=== PATIENT | male | born 1975 | race Caucasian/White ===

== ENCOUNTER 2019-11-06 19:37 | Emergency (ER) | payer OTHER ==
[~2019-11-06] VITALS: Ht 172.7 cm; Wt 117.4 kg
[2019-11-06] MEDS ORDERED: DIPH,PERTUSS(ACELL),TET VAC/PF 0.5 ML SYRINGE. VAX IM ONE (20:00)
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
[2019-11-06] MEDS ORDERED: AMOX1TAB61 PO (21:25)
[2019-11-06] MEDS ORDERED: NAPR-682 PO (21:25)
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
[2019-11-06] MEDS ORDERED: IBUPROFEN 800 MG TABLET. PO ONE (21:30)
[2019-11-06] MEDS ORDERED: CEPHALEXIN 250 MG CAPSULE PO ONE (21:30)
[2019-11-06 21:35] VITALS: BP 132/90
== END 2019-11-06 21:36 | disposition home or self-care (01) ==
LOC: ER 19:37
DX: S61.032A Puncture wound without foreign body of left thumb without damage to nail, initial encounter (principal); W29.4XXA Contact with nail gun, initial encounter; Y93.89 Activity, other specified; Y92.89 Other specified places as the place of occurrence of the external cause; Y99.8 Other external cause status
CPT/HCPCS: 73130; 90471; 90715; 99283

== ENCOUNTER 2020-12-06 12:32 | Emergency (ER) | payer OTHER ==
[~2020-12-06] VITALS: Ht 170.2 cm; Wt 123.8 kg
[~2020-12-06 12:32] MED LIST: AMOX1TAB61 PO; NAPR-682 PO
[2020-12-06] MEDS ORDERED: diphenhydrAMINE 50 MG/ML VIAL IVP ONE (13:00)
[2020-12-06] MEDS ORDERED: methylPREDNISolone SOD SUCC PF 125 MG/2 ML VIAL. IV ONE (13:00)
[2020-12-06] MEDS ORDERED: FAMOTIDINE 20 MG/2 ML VIAL IVP ONE (13:00)
[2020-12-06] MEDS ORDERED: IV NORMAL SALINE 1,000ML 1,000 ML IV ONE (13:00)
--- NOTE | 2020-12-06 13:01 | PHYS DOC ---
Past History Past Medical History: High Cholesterol, Hypertension Past Surgical History: Other Additional Past Surgical Histo: oral Alcohol Use: Rarely General Adult EDM: Chief Complaint: ALLERGIC REACTION HPI: HPI: 45-year-old male presents with angioedema. The patient has had angioedema at least 3 times in the last few weeks. He was on lisinopril for some time and so he stopped lisinopril after the first episode. They placed him on amlodipine. Patient took that medication and got a rash so he has discontinued that on his own. The only other medication he takes daily is rosuvastatin. 1 week ago he had angioedema of the upper and lower lip treated at urgent care with steroids followed by 6 more days at home. His last dose was 5 days ago. Today the patient developed swelling of his upper and lower lip again. It has improved p rior to arrival, but he feels like his voice is different than normal and he became concerned about having difficulty breathing. He has not had any difficulty breathing or swallowing so far. Review of Systems: Review of Systems: Constitutional: Denies fever or chills Eyes: Denies change in visual acuity HENT: Angioedema Respiratory: Denies cough or shortness of breath Cardiovascular: Denies chest pain or edema GI: Denies abdominal pain, nausea, vomiting, bloody stools or diarrhea : Denies dysuria Musculoskeletal: Denies back pain or joint pain Integument: Denies rash Neurologic: Denies headache, focal weakness or sensory changes Endocrine: Denies polyuria or polydipsia Lymphatic: Denies swollen glands Psychiatric: Denies depression or anxiety Current Medications: Current Meds: Current Medications Medications (Trade) Dose Ordered Sig/Dori Start Time Stop Time Status Last Admin Dose Admin Diphenhydramine HCl (Benadryl) 25 mg 1X ONCE 12/06/20 13:00 12/06/20 13:01 UNV Famotidine (Pepcid Vial) 20 mg 1X ONCE 12/06/20 13:00 12/06/20 13:01 UNV Methylprednisolone Sodium Succinate (SOLU-Medrol 125MG VIAL) 125 mg 1X ONCE 12/06/20 13:00 12/06/20 13:01 UNV Sodium Chloride 1,000 ml @ 1,000 mls/hr 1X ONCE 12/06/20 13:00 12/06/20 13:59 UNV Allergies: Allergies: Allergies Coded Allergies Type Severity Reaction Last Updated Verified lisinopril Allergy Unknown Swelling 12/06/20 Yes Physical Exam: PE: Constitutional: Well developed, well nourished, no acute distress, non-toxic appearance. [] HENT: Normocephalic, atraumatic, bilateral external ears normal, oropharynx moist, no oral exudates, nose normal. Mild angioedema of the left side of the upper lip, swollen uvula, airway patent. [] Eyes: PERRLA, EOMI, conjunctiva normal, no discharge. [] Neck: Normal range of motion, no tenderness, supple, no stridor. [] Cardiovascular: Heart rate regular rhythm, no murmur [] Lungs & Thorax: Bilateral breath sounds clear to auscultation [] Abdomen: Bowel sounds normal, soft, no tenderness, no masses, no pulsatile masses. [] Skin: Warm, dry, no erythema, no rash. [] Back: No tenderness, no CVA tenderness. [] Extremities: No tenderness, no cyanosis, no clubbing, ROM intact, no edema. [] Neurologic: Alert and oriented X 3, normal motor function, normal sensory fu nction, no focal deficits noted. [] Psychologic: Affect normal, judgement normal, mood normal. [] Current Patient Data: Vital Signs: Vital Signs Date Time Temp Pulse Resp B/P (MAP) Pulse Ox O2 Delivery O2 Flow Rate FiO2 12/06/20 12:47 97.9 83 18 159/101 (120) 98 Room Air EKG: EKG: [] Radiology/Procedures: Radiology/Procedures: [] Heart Score: C/O Chest Pain: N/A Risk Factors: Risk Factors: DM, Current or recent (<one month) smoker, HTN, HLP, family history of CAD, obesity. Risk Scores: Score 0 - 3: 2.5% MACE over next 6 weeks - Discharge Home Score 4 - 6: 20.3% MACE over next 6 weeks - Admit for Clinical Observation Score 7 - 10: 72.7% MACE over next 6 weeks - Early Invasive Strategies Course & Med Decision Making: Course & Med Decision Making Pertinent Labs and Imaging studies reviewed. (See chart for details) The patient did have some angioedema in the emergency room. I gave him 125 Vivian u-Medrol, 25 mg of Benadryl, 20 mg of Pepcid. His labs are unremarkable. I suspect this could be angioedema from his rosuvastatin. I have advised that he stop taking it for now and consult with his primary physician to discuss restart trial to see if he really is allergic to it or if they want to switch medications. Patient states verbal understanding. He is stable for discharge at this time. [] Dragon Disclaimer: Dragon Disclaimer: This electronic medical record was generated, in whole or in part, using a voice recognition dictation system. Departure Departure: Impression: Primary Impression: Angioedema Qualified Codes: T78.3XXA - Angioneurotic edema, initial encounter Disposition: HOME / SELF CARE / HOMELESS Condition: IMPROVED Referrals: SATYA CRUZ MD (PCP) Patient Instructions: Angioedema, [id number] DOMINIK YAÑEZ DO Dec 06, 2020 13:01
[2020-12-06 13:20] LABS: BASO # 0.1 x10^3/uL (0.0-0.2); BASO % 1 % (0-3); EOS # 0.4 x10^3/uL (0.0-0.7); EOS % 4 % (0-3); HEMATOCRIT 42.8 % (39.0-53.0); HEMOGLOBIN 14.3 g/dL (13.0-17.5); LYMPH # 2.3 x10^3/uL (1.0-4.8); LYMPH % 25 % (24-48); MEAN CORPUSCULAR HEMOGLOBIN 32 pg (25-35); MEAN CORPUSCULAR HGB CONC 34 g/dL (31-37); MEAN CORPUSCULAR VOLUME 94 fL (79-100); MONO # 0.8 x10^3/uL (0.0-1.1); MONO % 9 % (0-9); NEUT # 5.8 x10^3uL (1.8-7.7); NEUT % 62 % (31-73); PLATELET COUNT 210 x10^3/uL (140-400); RED BLOOD COUNT 4.53 x10^6/uL (4.30-5.70); RED CELL DISTRIBUTION WIDTH 14.3 % (11.5-14.5); WHITE BLOOD COUNT 9.3 x10^3/uL (4.0-11.0)
[2020-12-06 13:33] LABS: CALCIUM 9.5 mg/dL (8.5-10.1); GFR 81.2
[2020-12-06 13:38] LABS: ALBUMIN 4.2 g/dL (3.4-5.0); TOTAL BILIRUBIN 0.4 mg/dL (0.2-1.0); TOTAL PROTEIN 8.5 g/dL (6.4-8.2)
[2020-12-06 14:03] VITALS: BP 146/70
== END 2020-12-06 14:03 | disposition home or self-care (01) ==
LOC: ER 12:32
DX: T78.3XXA Angioneurotic edema, initial encounter (principal); E78.00 Pure hypercholesterolemia, unspecified; I10 Essential (primary) hypertension; Z88.8 Allergy status to other drugs, medicaments and biological substances
CPT/HCPCS: 36415; 80053; 85025; 96361; 96374; 96375; 99284; J1200; J2930; J3490; J7030